=== PATIENT | female | born 1960 | race Caucasian/White ===

== ENCOUNTER → 2018-08-26 | Outpatient (CLI) | payer BC | LOC: LAB.O 09:40 | PROVIDERS: ATTEND Nurse Practitioner Family | DX: R10.32 Left lower quadrant pain (principal); R42 Dizziness and giddiness; M62.81 Muscle weakness (generalized) ==

== ENCOUNTER → 2018-08-27 | Outpatient (CLI) | payer BC ==
--- NOTE | 2018-08-27 12:34 | CT ---
EXAM DESCRIPTION: CT ABDOMEN AND PELVIS WITHOUT AND WITH CONTRAST CLINICAL HISTORY: ACUTE ABD PAIN, LOWER BACK PAIN, NAUSEA EVALUATE FOR BOWEL OR OVARIAN ETIOLOGY COMPARISON: None Available. TECHNIQUE: CT of the abdomen and pelvis are performed prior to and during IV bolus administration of routine adult dose of nonionic iodinated contrast. Oral contrast media is administered as well. FINDINGS: CT abdomen The lung bases are clear of infiltrate. Liver is normal in size and parenchymal appearance. Gallbladder is surgically absent. Spleen, pancreas, and kidneys are unremarkable on precontrast images. There is no lymphadenopathy, inflammation, or free fluid observed. After IV contrast, normal enhancement of the liver spleen pancreas and kidneys is noted. Normal enhancing aorta with no aneurysm. CT pelvis No inflammation is seen around the cecum or terminal ileum or sigmoid colon. Appendix is small but otherwise normal. No stones are seen in the distal ureters or bladder. Normal pelvic small bowel loops. No fracture or lytic lesion of the osseous structures. Postcontrast images show normal enhancement of the pelvic vessels. Uterus and right ovary are normal in size. Prominent vessels in the left more than right adnexal regions suggest pelvic venous congestion or pelvic AV malformation/fistula. Prominent gonadal veins are seen bilaterally left larger than right. Left ovary is not identified. IMPRESSION: No acute upper abdominal process. 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 This exam was performed according to our departmental dose-optimization program, which includes automated exposure control, adjustment of the mA and/or kV according to patient size and/or use of iterative reconstruction technique. Electronically signed by: Basilio Gibson MD 08/27/2018 12:32 PM CDT
== END ==
LOC: CT 08:09
PROVIDERS: ATTEND Nurse Practitioner Family
DX: R10.32 Left lower quadrant pain (principal)

== ENCOUNTER → 2020-09-21 | Outpatient (CLI) | payer BC ==
--- NOTE | 2020-09-21 11:09 | CT ---
EXAM DESCRIPTION: CT-Head CLINICAL HISTORY: OCCIPITAL HEADACHE COMPARISON: None available TECHNIQUE: Multiple axial images of the head without contrast. Multiplanar reformatted images. This exam was performed according to our departmental dose-optimization program, which includes automated exposure control, adjustment of the mA and/or kV according to patient size and/or use of iterative reconstruction technique. FINDINGS: There is no CT evidence of intracranial hemorrhage, mass effect, or large territory infarction. Mild generalized volume loss. Mild patchy supratentorial white matter hypodensities. There are no abnormal extra-axial fluid collections. Vascular structures are unremarkable. There is no acute calvarial defect. The visualized paranasal sinuses and the mastoids are clear. IMPRESSION: 1. No CT evidence of an acute intracranial abnormality. Recommend follow-up MRI if symptoms persist. 2. Mild senescent changes. Electronically signed by: Atul Fernandes MD 09/21/2020 11:07 AM CDT
== END ==
LOC: RAD 10:23
PROVIDERS: ATTEND Emergency Medicine
DX: G31.1 Senile degeneration of brain, not elsewhere classified (principal); R51.9 Headache, unspecified